=== PATIENT | male | born 1950 | race Caucasian/White ===

== ENCOUNTER 2017-07-04 11:08 | Outpatient (CLI) | payer MEDICARE ==
[2017-07-04 18:08] LABS: BASOPHILS % (AUTO) 0.3 %; EOSINOPHILS # (AUTO) 0.1 10^3/uL (0.0-0.7); EOSINOPHILS % (AUTO) 0.9 %; HCT - HEMATOCRIT 43.1 % (42.0-52.0); HGB - HEMOGLOBIN 14.3 g/dL (14.0-18.0); LYMPHOCYTES # (AUTO) 1.6 10^3/uL (1.5-3.5); LYMPHOCYTES % (AUTO) 23.9 %; MEAN CORPUSCULAR HEMOGLOBIN 31.2 pg (27.0-31.0); MEAN CORPUSCULAR HGB CONC 33.1 g/dL (32.0-36.0); MEAN CORPUSCULAR VOLUME 94.3 fL (80.0-94.0); MEAN PLATELET VOLUME 8.5 fL (7.4-11.4); MONOCYTES # (AUTO) 0.7 10^3/uL (0.0-1.0); MONOCYTES % (AUTO) 10.5 %; NEUTROPHILS # (AUTO) 4.4 10^3/uL (1.5-6.6); NEUTROPHILS % (AUTO) 64.4 %; NUCLEATED RED BLOOD CELLS AUTO 0.1 /100WBC; RED BLOOD COUNT 4.57 10^6/uL (4.70-6.10); RED CELL DISTRIBUTION WIDTH 13.4 % (12.0-15.0); UNCORRECTED WHITE BLOOD COUNT 6.9 x10^3/uL; WHITE BLOOD COUNT 6.9 x10^3/uL (4.8-10.8)
[2017-07-04 19:00] LABS: CHOLESTEROL 236 mg/dL; HDL CHOLESTEROL 79 mg/dL; LDL/HDL RATIO 1.8 (<3.6); TRIGLYCERIDES 73 mg/dL; VLDL CHOLESTEROL 15 mg/dL
== END 2017-07-04 11:09 | disposition home or self-care (01) ==
LOC: LAB.S 11:08
PROVIDERS: ATTEND Nurse Practitioner Family
DX: Z13.220 Encounter for screening for lipoid disorders (principal); J44.9 Chronic obstructive pulmonary disease, unspecified
CPT/HCPCS: 36415; 80061; 85025

== ENCOUNTER 2017-08-29 09:33 | Day surgery (SDC) | payer MEDICARE, OTHER ==
[2017-08-29] MEDS ORDERED: fentaNYL 100 MCG/2 ML VIAL IVP ONE (09:34)
[2017-08-29] MEDS ORDERED: MIDAZOLAM 2 MG/2 ML VIAL IVP ONE (09:34)
[2017-08-29] MEDS ORDERED: LACTATED RINGERS 1,000 ML IV ONE (10:00)
[2017-08-29 12:02] VITALS: BP 138/88
== END 2017-08-29 09:34 | disposition home or self-care (01) ==
LOC: SDS 09:33
PROVIDERS: ATTEND Surgery
PROC: 0DBK8ZX Excision of Ascending Colon, Via Natural or Artificial Opening Endoscopic, Diagnostic (ICD-10-PCS; principal; 2017-08-29 10:30)
DX: D12.2 Benign neoplasm of ascending colon (principal); K64.8 Other hemorrhoids; Z87.891 Personal history of nicotine dependence
CPT/HCPCS: 45385; J7120

== ENCOUNTER 2017-11-14 08:00 | Outpatient (CLI) | payer MEDICARE, OTHER ==
[2017-11-14 18:03] LABS: BASOPHILS % (AUTO) 0.5 %; EOSINOPHILS # (AUTO) 0.1 10^3/uL (0.0-0.7); EOSINOPHILS % (AUTO) 0.8 %; HGB - HEMOGLOBIN 14.4 g/dL (14.0-18.0); LYMPHOCYTES # (AUTO) 1.4 10^3/uL (1.5-3.5); LYMPHOCYTES % (AUTO) 21.7 %; MEAN CORPUSCULAR HEMOGLOBIN 32.1 pg (27.0-31.0); MEAN CORPUSCULAR HGB CONC 33.6 g/dL (32.0-36.0); MEAN CORPUSCULAR VOLUME 95.5 fL (80.0-94.0); MEAN PLATELET VOLUME 8.4 fL (7.4-11.4); MONOCYTES # (AUTO) 0.6 10^3/uL (0.0-1.0); MONOCYTES % (AUTO) 9.7 %; NEUTROPHILS # (AUTO) 4.2 10^3/uL (1.5-6.6); NEUTROPHILS % (AUTO) 67.3 %; PLT - PLATELET COUNT 248 10^3/uL (130-450); RED BLOOD COUNT 4.47 10^6/uL (4.70-6.10); RED CELL DISTRIBUTION WIDTH 13.7 % (12.0-15.0); WHITE BLOOD COUNT 6.3 x10^3/uL (4.8-10.8)
[2017-11-14 18:28] LABS: ALBUMIN 3.9 g/dL (3.2-5.5); ALKALINE PHOSPHATASE 61 IU/L (42-121); ALT ALANINE AMINOTRANSFERASE 26 IU/L (10-60); AST ASPARTATE AMINOTRANSFERASE 35 IU/L (10-42); BILIRUBIN,TOTAL 0.3 mg/dL (0.2-1.0); CHOL/HDL RATIO 2.8 (<5.0); CHOLESTEROL 262 mg/dL; HDL CHOLESTEROL 95 mg/dL; LDL CHOLESTEROL,CALCULATED 141 mg/dL; LDL/HDL RATIO 1.5 (<3.6); TOTAL PROTEIN 7.1 g/dL (6.7-8.2); VLDL CHOLESTEROL 26 mg/dL
[2017-11-14 18:29] LABS: FOLATE 22.8 ng/mL (5.90 - >24.8)
[2017-11-14 18:36] LABS: BILIRUBIN,DIRECT < 0.1 mg/dL (0.1-0.5)
== END 2017-11-14 08:01 ==
LOC: LAB.S 08:00
PROVIDERS: ATTEND Nurse Practitioner Family
DX: E78.5 Hyperlipidemia, unspecified (principal); D64.9 Anemia, unspecified
CPT/HCPCS: 36415; 80061; 80076; 82607; 82746; 83721; 85025

== ENCOUNTER 2018-09-15 11:12 | Emergency (ER) | payer MEDICARE, OTHER ==
--- NOTE | 2018-09-15 12:37 | XRAY Report ---
Reason: pain after fall Procedure Date: 09/15/2018 Accession Number: [id number] / [id number] Procedure: XR - Ribs 2 View RT CPT Code: FULL RESULT: EXAM: RIGHT RIB RADIOGRAPHY EXAM DATE: 09/15/2018 12:12 PM. CLINICAL HISTORY: Pain after fall. COMPARISON: CHEST 2 VIEW PA/LAT 08/02/2016 3:56 PM. TECHNIQUE: 2 views. FINDINGS: Bones: No displaced or obvious nondisplaced rib fractures are appreciated. Lungs: No obvious focal abnormality. Mediastinum: Not visualized well secondary to orientation of the images. Other: None. IMPRESSION: No obvious rib fractures. RADIA
--- NOTE | 2018-09-15 12:42 | ED Physician Documentation ---
PD HPI TRUNK INJURY - Stated complaint Stated Complaint: FALL - Chief complaint Chief Complaint: Resp - History obtained from History obtained from: Patient - History of Present Illness Location: Right chest Type of injury: Fall Timing - onset: How many days ago (3) Timing - details: Still present Quality: Pain Worsened by: Palpating, Other (Respiratory inspiration.) Similar symptoms before: Has not had sx before - Additional information Additional information: The patient is a 67-year-old male who fell over 3 days ago when lifting his 150 pound Rottweiler into his truck. He impacted his right chest wall on a railroad tie as his dog fell on top of him. He presents now with pain in his right chest wall that is worse with inspiration, cough, or palpation. He denies shortness of breath or fever. He gets no relief with ibuprofen. He has a history of COPD. He quit smoking cigarettes 5 years ago. Review of Systems Constitutional: denies: Fever Nose: denies: Congestion Cardiac: reports: Chest pain / pressure Respiratory: denies: Dyspnea, Cough GI: denies: Abdominal Pain, Nausea, Vomiting Skin: denies: Rash Musculoskeletal: denies: Neck pain, Back pain, Extremity pain Neurologic: denies: Focal weakness, Numbness, Headache PD PAST MEDICAL HISTORY - Past Medical History Cardiovascular: None Respiratory: COPD Endocrine/Autoimmune: None GI: None : None HEENT: None Psych: Anxiety Musculoskeletal: None Derm: None - Past Surgical History Past Surgical History: No - Present Medications Home Medications: Ambulatory Orders Medication Instructions Recorded Confirmed Oxycodone HCl/Acetaminophen 1 - 2 each PO Q6H PRN #14 tablet 09/15/18 [Percocet 5-325 mg Tablet] - Allergies Allergies/Adverse Reactions: Allergies Allergy/AdvReac Type Severity Reaction Status Date / Time No Known Drug Allergies Allergy Verified 04/12/14 13:30 - Social History Does the pt smoke?: No Smoking Status: Former smoker Does the pt drink ETOH?: No Does the pt have substance abuse?: No - Immunizations Immunizations are current?: Yes - POLST Patient has POLST: No PD ED PE NORMAL - Vitals Vital signs reviewed: Yes (Borderline systolic hypertension initially.) - General General: Alert and oriented X 3, Well developed/nourished - HEENT HEENT: Atraumatic - Neck Neck: No bony TTP - Cardiac Cardiac: RRR - Respiratory Respiratory: Clear bilaterally, Other (There is tenderness to palpation of the right chest wall in the axillary line, in the lower third of the chest. There is no ecchymosis, and no bony step-off palpated.) - Abdomen Abdomen: Soft, Non tender - Back Back: No spinal TTP - Derm Derm: No rash - Extremities Extremities: No edema, No calf tenderness / cord - Neuro Neuro: Alert and oriented X 3, No motor deficit, No sensory deficit Results - Vitals Vitals: Oxygen O2 Source Room air - Rads (name of study) AP chest with right ribs Radiology: Prelim report reviewed, EMP read contemporaneously, See rad report (No evidence of rib fracture or pneumothorax.) PD MEDICAL DECISION MAKING - ED course Complexity details: reviewed results, re-evaluated patient, considered differential, d/w patient ED course: The patient's presentation is most consistent with contusion to the right chest wall. There is no pneumothorax and no rib fracture detected on AP chest with right rib detail. It is possible to have a nondisplaced rib fracture that might not be seen on x-ray. I discussed with the patient the expected course of injury, symptomatic treatment and outpatient follow-up, as well as potentially worrisome signs or symptoms that should prompt reevaluation in the emergency department. He is being discharged with a prescription for Percocet, 14 tablets. Departure - Departure Disposition: 01 Home, Self Care Clinical Impression: Chest wall contusion Qualifiers: Encounter type: initial encounter Laterality: right Qualified Code(s): S20.211A - Contusion of right front wall of thorax, initial encounter Condition: Stable Instructions: ED Contusion Chest Wall Follow-Up: Adriana Azar ARNP [Credentialed Staff Provider] - Prescriptions: Oxycodone HCl/Acetaminophen [Percocet 5-325 mg Tablet] 1 - 2 each PO Q6H PRN #14 tablet PRN Reason: pain Comments: Apply ice pack to the injured area intermittently for the next 3 or 4 days. Continue to use the corset if it provides comfort. You can use ibuprofen, up to 800 mg 3 times daily for its anti-inflammatory effect. You can use Percocet as prescribed if needed for pain. Follow-up with your primary physician within 2 weeks. Call to schedule an appointment. Return to the emergency department if you develop increasing difficulty breathing, or otherwise worsening symptoms. Discharge Date/Time: 09/15/18 12:53
[2018-09-15 12:53] VITALS: BP 142/65
== END 2018-09-15 12:53 | disposition home or self-care (01) ==
LOC: ED 11:12
DX: S20.211A Contusion of right front wall of thorax, initial encounter (principal); W19.XXXA Unspecified fall, initial encounter; W54.8XXA Other contact with dog, initial encounter; Z87.891 Personal history of nicotine dependence
CPT/HCPCS: 99283

== ENCOUNTER 2018-11-13 08:00 | Outpatient (CLI) | payer MEDICARE, OTHER | END 2018-11-13 23:59 | disposition home or self-care (01) | LOC: LAB.S 08:00 | PROVIDERS: ATTEND Nurse Practitioner Family | DX: R53.83 Other fatigue (principal) | CPT/HCPCS: 36415; 81599; 84402; 84403; 84443 ==

== ENCOUNTER 2018-12-11 08:53 | Outpatient (CLI) | payer MEDICARE, OTHER ==
[2018-12-11 18:18] LABS: BASOPHILS % (AUTO) 0.7 %; EOSINOPHILS # (AUTO) 0.2 10^3/uL (0.0-0.7); EOSINOPHILS % (AUTO) 3.5 %; LYMPHOCYTES # (AUTO) 1.5 10^3/uL (1.5-3.5); LYMPHOCYTES % (AUTO) 29.6 %; MEAN CORPUSCULAR HEMOGLOBIN 31.9 pg (27.0-31.0); MEAN CORPUSCULAR HGB CONC 33.5 g/dL (32.0-36.0); MEAN CORPUSCULAR VOLUME 95.4 fL (80.0-94.0); MEAN PLATELET VOLUME 7.9 fL (7.4-11.4); MONOCYTES # (AUTO) 0.5 10^3/uL (0.0-1.0); MONOCYTES % (AUTO) 9.8 %; NEUTROPHILS % (AUTO) 56.4 %; PLT - PLATELET COUNT 283 10^3/uL (130-450); RED CELL DISTRIBUTION WIDTH 13.6 % (12.0-15.0); WHITE BLOOD COUNT 5.2 x10^3/uL (4.8-10.8)
[2018-12-11 19:05] LABS: ALBUMIN 3.5 g/dL (3.2-5.5); ALKALINE PHOSPHATASE 66 IU/L (42-121); ALT ALANINE AMINOTRANSFERASE 20 IU/L (10-60); AST ASPARTATE AMINOTRANSFERASE 27 IU/L (10-42); BILIRUBIN,TOTAL 0.5 mg/dL (0.2-1.0); BUN - BLOOD UREA NITROGEN 8 mg/dL (6-20); CALCIUM 9.1 mg/dL (8.5-10.3); CARBON DIOXIDE - CO2 26 mmol/L (21-32); CHLORIDE 106 mmol/L (101-111); CHOL/HDL RATIO 2.6 (<5.0); CHOLESTEROL 203 mg/dL; CREATININE 0.7 mg/dL (0.6-1.2); GFR - MDRD 112 (>89); GLUCOSE 110 mg/dL (70-100); HDL CHOLESTEROL 79 mg/dL; LDL CHOLESTEROL,CALCULATED 110 mg/dL; LDL/HDL RATIO 1.4 (<3.6); SODIUM 140 mmol/L (135-145); VLDL CHOLESTEROL 14 mg/dL
== END 2018-12-11 23:59 | disposition home or self-care (01) ==
LOC: LAB.S 08:53
PROVIDERS: ATTEND Nurse Practitioner Family
DX: R41.3 Other amnesia (principal); D64.9 Anemia, unspecified; E78.5 Hyperlipidemia, unspecified
CPT/HCPCS: 36415; 80053; 80061; 83721; 85025

== ENCOUNTER 2020-05-12 13:15 | Outpatient (CLI) | payer MEDICARE, OTHER ==
--- NOTE | 2020-05-12 15:17 | Ultrasound Report ---
PROCEDURE: Pelvic Limited or F/U INDICATIONS: Inguinal HERNIA TECHNIQUE: Real-time transabdominal scanning was performed of the inguinal region, with image documentation. COMPARISON: None. FINDINGS: There is herniated fat and small bowel in the right inguinal region. The hernia neck measures approxi mately 2.0 cm in transverse diameter. No left inguinal hernia. IMPRESSION: 1. Reducible fat and bowel containing right inguinal hernia. Reviewed by: Bonnie Rojas MD on 05/12/2020 3:15 PM PDT Approved by: Bonnie Rojas MD on 05/12/2020 3:15 PM PDT Station ID: [id number]
== END 2020-05-12 13:16 | disposition home or self-care (01) ==
LOC: DI 13:15
PROVIDERS: ATTEND Nurse Practitioner Family
DX: K40.90 Unilateral inguinal hernia, without obstruction or gangrene, not specified as recurrent (principal)
CPT/HCPCS: 76857

== ENCOUNTER 2020-06-06 16:42 | Outpatient (CLI) | payer MEDICARE, OTHER | END 2020-06-06 16:43 | disposition short-term general hospital (02) | LOC: EMS 16:42 | PROVIDERS: ATTEND Surgery | DX: S68.022A Partial traumatic metacarpophalangeal amputation of left thumb, initial encounter (principal); W29.8XXA Contact with other powered hand tools and household machinery, initial encounter; Y93.H3 Activity, building and construction; Y92.89 Other specified places as the place of occurrence of the external cause; Y99.0 Civilian activity done for income or pay | CPT/HCPCS: A0425; A0427 ==

== ENCOUNTER 2020-07-29 17:10 | Outpatient (CLI) | payer MEDICARE, OTHER | END 2020-07-29 23:59 | disposition home or self-care (01) | LOC: LAB.R 17:10 | PROVIDERS: ATTEND Nurse Practitioner | DX: M67.40 Ganglion, unspecified site (principal) | CPT/HCPCS: 81599; 87070; 87075; 87205 ==

== ENCOUNTER 2020-08-29 13:21 | Outpatient (CLI) | payer MEDICARE, OTHER | END 2020-08-29 13:22 | disposition home or self-care (01) | LOC: COV 13:21 | PROVIDERS: ATTEND Surgery | DX: Z01.812 Encounter for preprocedural laboratory examination (principal); Z20.822 Contact with and (suspected) exposure to COVID-19; K40.20 Bilateral inguinal hernia, without obstruction or gangrene, not specified as recurrent ==

== ENCOUNTER 2020-09-12 16:28 | Outpatient (CLI) | payer MEDICARE, OTHER | END 2020-09-12 16:29 | disposition home or self-care (01) | LOC: COV 16:28 | PROVIDERS: ATTEND Surgery | DX: Z01.812 Encounter for preprocedural laboratory examination (principal); K40.90 Unilateral inguinal hernia, without obstruction or gangrene, not specified as recurrent; Z20.822 Contact with and (suspected) exposure to COVID-19 ==

== ENCOUNTER 2020-09-16 10:23 | Day surgery (SDC) | payer MEDICARE, OTHER ==
[2020-09-16] MEDS ORDERED: LACTATED RINGERS 1,000 ML IV ONE ×2 (10:30→14:19)
[2020-09-16] MEDS ORDERED: ceFAZolin 2 GM/50 ML 2 GM/50 ML BAG IV ONE (10:57)
--- NOTE | 2020-09-16 11:12 | ANESTHESIA ---
Pre-Anesthesia VS, & Labs - Diagnosis right inguinal hernia - Procedure right inguinal hernia repair with mesh Vital Signs: Temp Pulse Resp BP Pulse Ox 36.4 C L 93 12 152/91 H 98 09/16/20 10:31 09/16/20 10:31 09/16/20 10:31 09/16/20 10:31 09/16/20 10:31 Height: 5 ft 9 in Weight (kg): 67.3 kg Body Mass Index: 21.9 BMI Classification: Healthy weight - NPO Last Fluid Intake: black coffee at 0800 Home Medications and Allergies Home Medications: Ambulatory Orders No Known Home Medications 08/28/20 No Known Home Medications 08/28/20 Allergies/Adverse Reactions: Allergies Allergy/AdvReac Type Severity Reaction Status Date / Time No Known Drug Allergies Allergy Verified 04/12/14 13:30 Anes History & Medical History - Anesthetic History Family history of Anesthesia Complications: Denies Family history of Malignant Hyperthermia: Denies - Medical History Cardiovascular: reports: None Pulmonary: reports: COPD (does not use inhalers) Gastrointestinal: reports: None Urinary: reports: None Neuro: reports: None Musculoskeletal: reports: None Endocrine/Autoimmune: reports: None Blood Disorders: reports: None Skin: reports: None Smoking Status: Former smoker (quit 5 years ago. Room smells like smoke) History of Cancer?: No Exam General: Alert, Oriented x3, Cooperative, No acute distress Dental: WNL Mouth Openin Fingerbreadth Neck Mobility: Normal Mallampati classification: II Thyromental Distance: greater than 6 cm Respiratory: Decreased breath sounds (all lung vogel) Cardiovascular: Regular rate, Normal S1, Normal S2, No murmurs Mental/Cognitive Status: Alert/Oriented X3, Normal for patient Plan Anesthesia Type: General Consent for Procedure(s) Verified and Reviewed: Yes Code Status: Attempt Resuscitation ASA classification: 2-Mild systemic disease Is this case an emergency?: No
[2020-09-16] MEDS ORDERED: ePHEDrine 50 MG/ML VIAL IVP PRN (11:15)
[2020-09-16] MEDS ORDERED: fentaNYL 100 MCG/2 ML VIAL IVP PRN (11:15)
[2020-09-16] MEDS ORDERED: MORPHINE 2 MG/ML CARPUJECT IVP PRN (11:15)
[2020-09-16] MEDS ORDERED: HYDROmorphone 0.5 MG/0.5 ML SYRINGE IVP PRN (11:15)
[2020-09-16] MEDS ORDERED: ONDANSETRON 4 MG/2 ML VIAL IVP PRN (11:15)
[2020-09-16] MEDS ORDERED: METOCLOPRAMIDE 10 MG/2 ML VIAL IVP PRN (11:15)
[2020-09-16] MEDS ORDERED: ATROPINE ABBOJECT 1 MG/10 ML SYRINGE IVP PRN (11:15)
[2020-09-16] MEDS ORDERED: NALOXONE 0.4 MG/ML VIAL IVP PRN (11:15)
[2020-09-16] MEDS ORDERED: ROPIVACAINE 0.5% PF 20 ML AMPULE ONE (11:53)
[2020-09-16] MEDS ORDERED: LACTATED RINGERS 1,000 ML IV SCH (12:00)
[2020-09-16] MEDS ORDERED: PROPOFOL 200 MG/20 ML VIAL IVP ONE ×2 (12:14→13:35)
[2020-09-16] MEDS ORDERED: MIDAZOLAM 2 MG/2 ML VIAL ONE (12:19)
[2020-09-16] MEDS ORDERED: fentaNYL 100 MCG/2 ML VIAL ONE (12:19)
[2020-09-16] MEDS ORDERED: BUPIVACAINE 0.25% PF 30 ML VIAL ONE (12:21)
[2020-09-16] MEDS ORDERED: LIDOCAINE 1% 50 ML MDV ONE (12:21)
--- NOTE | 2020-09-16 12:25 | HISTORY & PHYSICAL EXAMINATION ---
Chief Complaint - Chief Complaint Chief Complaint: right groin bulge History of Present Illness - History Obtained From History obtained from: patient Exam Limitations: none - History of Present Illness HPI Comment/Other: progressive right groin bulge and pain. No problems on the left History - Past Medical History Cardiovascular: reports: None Respiratory: reports: COPD (does not use inhalers) Neuro: reports: None Endocrine/Autoimmune: reports: None GI: reports: None : reports: None HEENT: reports: Chronic vision loss Psych: reports: None Musculoskeletal: reports: None Derm: reports: None MRSA Hx?: No - POLST Patient has POLST: No Meds/Allgy - Home Medications Home Medications: Ambulatory Orders Medication Instructions Recorded Confirmed No Known Home Medications 08/28/20 08/28/20 - Allergies Allergies/Adverse Reactions: Allergies Allergy/AdvReac Type Severity Reaction Status Date / Time No Known Drug Allergies Allergy Verified 04/12/14 13:30 Review of Systems - Constitutional Constitutional: reports: Fatigue (10 pt ros as above otherwise unremarkable) Exam - Vital Signs Reviewed Vital Signs: Yes Vital Signs: Vital Signs x48h Temp Pulse Resp BP Pulse Ox 09/16/20 10:31 36.4 C L 93 12 152/91 H 98 - Physical Exam General Appearance: positive: No acute distress, Alert Eyes Bilateral: positive: Normal inspection, PERRL, EOMI Neck: positive: No JVD, Trachea midline Respiratory: positive: No respiratory distress, Breath sounds nml Cardiovascular: positive: Regular rate & rhythm Abdomen: positive: Other (right inguinal hernia present) Conclusion/Plan - Problem List (1) Inguinal hernia Conclusion/Plan: right inguinal hernia. plan open repair with mesh. parq held and consent obtained
[2020-09-16] MEDS ORDERED: LIDOCAINE 1% 50 ML MDV SUBQ ONE ×2 (13:10)
[2020-09-16] MEDS ORDERED: BUPIVACAINE 0.25% PF 30 ML VIAL SUBQ ONE ×2 (13:10)
[2020-09-16] MEDS ORDERED: ACETAMINOPHEN 1,000 MG/100 ML 100 ML IV ONE (13:12)
[2020-09-16] MEDS ORDERED: LIDOCAINE-MPF 2% 5 ML VIAL ONE (13:42)
[2020-09-16] MEDS ORDERED: HYDROcod/ACETAM 5/325 MG TABLET PO PRN (14:26)
--- NOTE | 2020-09-16 14:26 | OPERATIVE REPORT ---
Operative Report - General Procedure Date: 09/16/20 Planned Procedure: open right inguinal hernia Pre-Op Diagnosis: right inguinal hernia Procedure Performed: open right inguinal hernia repair with mesh Post Op Diagnosis: rih/ large indirect and small indirect - Procedure Note Primary Surgeon: perla barraza Anesthesia Technique: Local, MAC Findings: as above Complications: none
[2020-09-16 14:37] VITALS: BP 147/87
--- NOTE | 2020-09-16 15:43 | ANESTHESIA POST OP EVALUATION ---
Anesthesia Post Eval - Post Anesthesia Eval Vitals: Last Vital Signs Temp 36.4 C L 09/16/20 14:37 Pulse 54 L 09/16/20 14:37 Resp 10 L 09/16/20 14:37 BP 147/87 H 09/16/20 14:37 Pulse Ox 100 09/16/20 14:37 CV Function Including HR & BP: positive: Stable Pain Control: positive: Satisfactory Nausea & Vomiting: positive: Negative Mental Status: positive: Baseline Respiratory Status: Airway Patent Hydration Status: Satisfactory Anesthesia Complications: positive: None
--- NOTE | 2020-09-16 17:49 | OPERATIVE REPORT ---
DATE OF SERVICE: 09/16/2020 Physician: Joshua Owens MD PREOPERATIVE DIAGNOSIS: Right inguinal hernia. POSTOPERATIVE DIAGNOSIS: Right inguinal hernia, large indirect and moderate direct. PROCEDURE PERFORMED: Open right inguinal hernia repair with mesh, Tracy. SURGEON: Joshua Owens MD. BORDER MEASURER AND CUTTER: None. ANESTHESIA: Monitored anesthesia care, IV sedation, and local anesthesia. COMPLICATIONS: None. SPECIMEN: Indirect hernia sac removed, however not sent for pathology. ESTIMATED BLOOD LOSS: None. DRAINS: None. COMPLICATIONS: None. PROSTHETIC: Polypropylene mesh. INDICATIONS FOR PROCEDURE: The patient is a healthy, fit, and active 69-year-old gentleman with a sy mptomatic right inguinal hernia. It is progressing in size as well as symptoms with pain and discomf ort. He presents for open repair with mesh. The risks discussed, alternatives discussed, all questi ons answered, and consent obtained. DETAILS OF PROCEDURE: The patient was properly identified, brought to the operating room, and placed in the supine position. He voided prior to surgery. Monitored anesthesia care was given as well as IV sedation. He was prepped and draped in a sterile fashion and given preoperative antibiotics. Lo radha anesthetic was given throughout the procedure. A 5 cm incision was made in the direction of Lang er's lines. Dissection proceeded with cutting current. The superficial epigastric vein was identifi ed, clamped, divided, and tied with 3-0 Vicryl. The dissection proceeded down to the aponeurosis. T he aponeurosis was opened in the direction of its fibers, extending to the external ring. The cord s tructures were mobilized and brought up. The shelving border of Poupart's ligament was defined as we ll as the Antony's ligament and pubic tubercle area. The iliohypogastric nerve laid quite medial and out of the area of surgery or suture placement. He had a large indirect hernia sac. This was mobil ized away from the cord structures. It contained no contents. It was suture ligated with a 2-0 silk . He had a direct bulge as well. Polypropylene mesh was cut to size and with tails. The mesh was s ecured with multiple interrupted 0 Ethibond sutures. Sutures were placed over the pubic tubercle, al hang the shelving border of Poupart's ligament, and medially along the musculature or fascia of the in ternal oblique. The medial tail of the mesh was secured to the shelving border of Poupart's ligament with 2 interrupted 0 Ethibond sutures, recreating the internal ring of appropriate size. The ilioin guinal nerve was kept with the cord structures during the procedure. The aponeurosis was closed with a running 2-0 Vicryl suture. Annita's was closed with interrupted 3-0 Vicryl suture. Skin was clos ed with a running 4-0 Monocryl subcuticular suture. A dressing was applied. He tolerated the proced ure very well. TD: 09/16/2020 17:12
== END 2020-09-16 10:24 | disposition home or self-care (01) ==
LOC: SDS 10:23
PROVIDERS: ATTEND Surgery
DX: K40.90 Unilateral inguinal hernia, without obstruction or gangrene, not specified as recurrent (principal); J44.9 Chronic obstructive pulmonary disease, unspecified; Z87.891 Personal history of nicotine dependence
CPT/HCPCS: 49505; C1781; J0131; J0690; J7120

== ENCOUNTER 2022-06-17 07:55 | Outpatient (CLI) | payer MEDICARE, OTHER ==
--- NOTE | 2022-06-17 15:56 | Ultrasound Report ---
PROCEDURE: Aorta Screening INDICATIONS: AAA SCREENING, FINGER DEMORMITY TECHNIQUE: Real time scanning was performed of the aorta and iliac arteries, with image documentatio n. COMPARISON: None FINDINGS: Aorta: Proximal aortic diameter measures 2.6 x 2.6 cm. Mid-aorta measures 1.9 x 1.9 cm. Distal aor tic diameter is 1.6 x 1.7 cm. Minimal amount of atherosclerotic plaques are seen in distal infrarena l abdominal aorta and origin of right common iliac artery. Iliac arteries: Right common iliac artery measures 1.1 x 1.1 cm. Left common iliac artery measures 1.1 x 1.2 cm. IMPRESSION: No evidence of abdominal aortic aneurysm. Minimal amount of atherosclerotic plaques in distal abdominal aorta and proximal right common iliac a rtery. Reviewed by: Rene Guzman MD on 06/17/2022 3:54 PM PDT Approved by: Rene Guzman MD on 06/17/2022 3:54 PM PDT Station ID: [id number]
== END 2022-06-17 07:56 | disposition home or self-care (01) ==
LOC: DI 07:55
PROVIDERS: ATTEND Nurse Practitioner Family
DX: Z13.6 Encounter for screening for cardiovascular disorders (principal); I70.0 Atherosclerosis of aorta; I70.8 Atherosclerosis of other arteries

== ENCOUNTER 2022-07-01 09:50 | Outpatient (CLI) | payer MEDICARE, OTHER ==
[2022-07-01 15:39] LABS: ALBUMIN 3.9 g/dL (3.2-5.5); ALBUMIN/GLOBULIN RATIO 1.1 (1.0-2.2); BILIRUBIN,TOTAL 0.5 mg/dL (0.2-1.0); CALCIUM 9.6 mg/dL (8.5-10.3); CREATININE 0.8 mg/dL (0.6-1.2); POTASSIUM 4.5 mmol/L (3.5-5.0); TOTAL PROTEIN 7.3 g/dL (6.7-8.2)
[2022-07-01 16:00] LABS: RHEUMATOID FACTOR POSITIVE (Negative)
--- NOTE | 2022-07-01 17:06 | XRAY Report ---
PROCEDURE: Hand 3 View BILAT INDICATIONS: XRAY TECHNIQUE: 3 views of the hand(s) acquired. COMPARISON: None FINDINGS: Bones: No fractures or dislocations. No suspicious bony lesions. Joint space narrowing and margina l osteophytes noted involving the proximal interphalangeal joints, particularly in the fifth proximal interphalangeal joint bilaterally. 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 There is a s mall marginal erosion noted involving the fifth left PIP. There is mild ulnar deviation at the metata rsophalangeal joints. 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 Soft tissues: No suspicious soft tissue calcifications. IMPRESSION: Proximal interphalangeal joint arthritic changes with small marginal erosion the left fifth PIP sugge sting an inflammatory component. Reviewed by: Miguel Bright MD on 07/01/2022 4:05 PM [place] Approved by: Miguel Bright MD on 07/01/2022 4:05 PM [place] Station ID: [id number]
[2022-07-02 17:08] LABS: ANTI-DNA (DS) AB QN <1 IU/mL (0-9); CENTROMERE B ANTIBODIES <0.2 AI (0.0-0.9); CHROMATIN ANTIBODIES <0.2 AI (0.0-0.9); JO-1 AB <0.2 AI (0.0-0.9); RIBOSOMAL P ANTIBODIES <0.2 AI (0.0-0.9); RNP ANTIBODIES <0.2 AI (0.0-0.9); SCLERODERMA-70 ANTIBODIES <0.2 AI (0.0-0.9); SJOGREN'S ANTI-SS-A <0.2 AI (0.0-0.9); SJOGREN'S ANTI-SS-B <0.2 AI (0.0-0.9); SMITH ANTIBODIES <0.2 AI (0.0-0.9); SMITH/RNP ANTIBODIES <0.2 AI (0.0-0.9)
== END 2022-07-01 09:51 | disposition home or self-care (01) ==
LOC: DI.S 09:50
PROVIDERS: ATTEND Nurse Practitioner Family
DX: Z13.1 Encounter for screening for diabetes mellitus (principal); M19.042 Primary osteoarthritis, left hand; M19.041 Primary osteoarthritis, right hand; M85.842 Other specified disorders of bone density and structure, left hand
CPT/HCPCS: 36415; 80053; 83516; 86225; 86235; 86430

== ENCOUNTER 2022-11-29 08:00 | Outpatient (CLI) | payer MEDICARE, OTHER ==
--- NOTE | 2022-11-30 10:43 | XRAY Report ---
PROCEDURE: Chest 2 View X-Ray INDICATIONS: BRONCHITIS, ACUTE WITH BRONCHOSPASM TECHNIQUE: 2 views of the chest were acquired. COMPARISON: None. FINDINGS: Surgical changes and devices: None. Lungs and pleura: No pleural effusions or pneumothorax. Lungs are clear. Peribronchial cuffing, s uggestive of infectious or inflammatory bronchitis. Mediastinum: Mediastinal contours appear normal. Heart size is normal. Bones and chest wall: No suspicious bony lesions. Overlying soft tissues appear unremarkable. IMPRESSION: Peribronchial cuffing, suggestive of infectious or inflammatory bronchitis. Reviewed by: Maikel Burgess on 11/30/2022 10:42 AM PDT Approved by: Maikel Burgess on 11/30/2022 10:42 AM PDT Station ID: [id number]
== END 2022-11-29 23:59 | disposition home or self-care (01) ==
LOC: DI.S 08:00
PROVIDERS: ATTEND Physician Assistant Medical
DX: J20.9 Acute bronchitis, unspecified (principal)

== ENCOUNTER 2023-01-19 16:35 | Outpatient (CLI) | payer MEDICARE, OTHER | END 2023-01-19 16:36 | disposition EMS.NT | LOC: EMS 16:35 | DX: Z04.1 Encounter for examination and observation following transport accident (principal) ==

== ENCOUNTER 2023-03-05 08:00 | Outpatient (CLI) | payer MEDICARE, OTHER ==
--- NOTE | 2023-03-05 18:13 | XRAY Report ---
PROCEDURE: Foot 3 View LT INDICATIONS: CRUSHING INJURY OF LEFT FOOT TECHNIQUE: 3 views of the foot were acquired. COMPARISON: None. FINDINGS: Bones: There is a nondisplaced comminuted fracture of the left great toe proximal phalanx. No defini te intra-articular extension. Overlying soft tissue edema. Remainder of the visualized osseous struct ures appear intact. No suspicious bony lesions. Soft tissues: No suspicious soft tissue calcifications or masses. IMPRESSION: Nondisplaced, mildly comminuted fracture of the left great toe proximal phalanx. Reviewed by: Luis Eduardo Costa MD on 03/05/2023 5:12 PM SWAPNIL Approved by: Luis Eduardo Costa MD on 03/05/2023 5:12 PM SWAPNIL Station ID: [id number]
== END 2023-03-05 23:59 | disposition home or self-care (01) ==
LOC: DI.S 08:00
PROVIDERS: ATTEND Physician Assistant
DX: S92.415A Nondisplaced fracture of proximal phalanx of left great toe, initial encounter for closed fracture (principal)

== ENCOUNTER 2023-03-14 08:00 | Outpatient (CLI) | payer MEDICARE, OTHER ==
--- NOTE | 2023-03-14 12:42 | XRAY Report ---
PROCEDURE: Toe(s) LT INDICATIONS: LEFT 1ST TOE FRACTURE TECHNIQUE: 3 views of the left foot acquired. COMPARISON: Left foot radiographs 03/05/2023 FINDINGS: Bones: Similar appearance and alignment of the previously demonstrated nondisplaced fracture of the f irst digit proximal phalanx. Soft tissues: No suspicious soft tissue densities. IMPRESSION: Similar appearance and alignment of the previously demonstrated nondisplaced fracture of the first di git proximal phalanx. Reviewed by: Charlie Loo MD on 03/14/2023 12:40 PM PDT Approved by: Charlie oLo MD on 03/14/2023 12:40 PM PDT Station ID: [id number]
== END 2023-03-14 23:59 | disposition home or self-care (01) ==
LOC: DI.WOS 08:00
PROVIDERS: ATTEND Orthopaedic Surgery
DX: S92.415D Nondisplaced fracture of proximal phalanx of left great toe, subsequent encounter for fracture with routine healing (principal)

== ENCOUNTER 2023-04-19 08:00 | Outpatient (CLI) | payer MEDICARE, OTHER ==
--- NOTE | 2023-04-19 14:08 | XRAY Report ---
PROCEDURE: Toe(s) LT INDICATIONS: LEFT GREAT TOE FRACTURE TECHNIQUE: 3 views of the first toe(s) acquired. COMPARISON: 03/14/2023 FINDINGS: Bones: Healing minimally displaced fracture of the first proximal phalanx again seen. On oblique view , a nondisplaced lucency is also seen at the second proximal phalanx. Suspected old fracture of the d istal fourth metatarsal. Soft tissues: No suspicious calcifications. IMPRESSION: Healing fracture of the first proximal phalanx. Questionable nondisplaced lucency versus artifact in the second proximal phalanx, correlate with any tenderness. Possible old fracture of the fourth metatarsal. Reviewed by: Alfredito Alas MD on 04/19/2023 2:06 PM PDT Approved by: Alfredito Alas MD on 04/19/2023 2:06 PM PDT Station ID: [id number]
== END 2023-04-19 23:59 | disposition home or self-care (01) ==
LOC: DI.WOS 08:00
PROVIDERS: ATTEND Orthopaedic Surgery
DX: S92.415D Nondisplaced fracture of proximal phalanx of left great toe, subsequent encounter for fracture with routine healing (principal)